=== PATIENT | male | born 1995 | race Caucasian/White ===

== ENCOUNTER 2017-09-20 18:13 | Emergency (ER) | payer OTHER ==
[~2017-09-20] VITALS: Ht 167.6 cm; Wt 78.0 kg
[2017-09-20 18:17] VITALS: TEMP 37; Ht 167.6 cm; Wt 78.0 kg
--- NOTE | 2017-09-20 20:03 | DIAGNOSTIC IMAGING REPORT ---
CT SCAN OF THE BRAIN WITHOUT IV CONTRAST CLINICAL HISTORY: Fall. Intoxication. COMPARISON STUDY: No priors. TECHNIQUE: Unenhanced axial CT scan of the brain is performed from the vertex to the skull base. A dose lowering technique was utilized adhering to the principles of ALARA. CT DOSE: 3399.59 mGy.cm FINDINGS: Brain parenchyma: The brain parenchyma is normal in appearance. There is no hemorrhage, mass effect, or evidence of acute territorial ischemia by CT criteria. Jefferson-white matter is preserved. No extra-axial fluid collection is seen. Ventricles, sulci, cisterns: Normal in configuration. Intracranial vasculature: The visualized intracranial vasculature at the skull base is normal in appearance. Calvarium: There is no depressed calvarial fracture. Sinuses and mastoids: The visualized paranasal sinuses are clear. The mastoid air cells are well pneumatized. Orbits: The bony orbits are grossly intact. IMPRESSION: No acute intracranial abnormality. Electronically signed by: Rosendo Ignacio M.D. 09/20/2017 8:02 PM Dictated Date/Time: 09/20/2017 7:59 PM
--- NOTE | 2017-09-20 20:11 | DIAGNOSTIC IMAGING REPORT ---
CT SCAN OF THE FACIAL BONES WITHOUT IV CONTRAST CLINICAL HISTORY: Fall. Intoxication. Right facial pain. COMPARISON STUDY: CT of the brain performed concurrently on 09/20/2017. TECHNIQUE: High-resolution CT scan of the facial bones is performed. Images are reviewed in the axial, sagittal, and coronal planes. IV contrast was not administered for this examination. A dose lowering technique was utilized adhering to the principles of ALARA. CT DOSE: Reported separately under the concurrently performed CT scan of the brain. FINDINGS: The skeletal structures are well mineralized. There is no evidence of facial bone fracture. The bony orbits are intact and the orbital contents are within normal limits. The zygomatic arches, nasal bones, and pterygoid plates are preserved. The maxilla and mandible are intact. There are no layering blood products within the paranasal sinuses. The sinuses and mastoids are clear. The visualized calvarium and upper cervical spine are maintained. Partially imaged brain parenchyma is within normal limits. There is right premalar and periorbital soft tissue contusion. IMPRESSION: 1. There is no evidence of facial bone fracture. 2. Right periorbital and premalar soft tissue contusion. Electronically signed by: Rosendo Ignacio M.D. 09/20/2017 8:10 PM Dictated Date/Time: 09/20/2017 7:58 PM
--- NOTE | 2017-09-21 03:35 | EMERGENCY ROOM VISIT NOTE ---
History First contact with patient: 18:20 Chief Complaint: LACERATION/CUT (SUT/DERMABOND) Stated Complaint: LACERATION TO R EYE, BEEN DRINKING Nursing Triage Summary: Patient was at the [facility] and was found on the ground with a laceration to right eye. Patient states he was drinking "a lot of alcohol" Denies medical problems or taking any medications. History of Present Illness The patient is a 22 year old male who presents to the Emergency Room via ambulance with complaints of injuries after he fell while drinking alcohol today. The patient reports significant alcohol consumption today while tailgating. The patient denies any illicit drug use. He also denies any other injuries today or from his fall, denying any headache, neck pain or back pain. He also denies any paresthesias or numbness of the extremities. Review of Systems Initial review of system was limited secondary to alcohol intoxication, but full 10 system review was performed later in the patient's evaluation.10 system review was performed and was negative except for pertinent positives and negatives as indicated in history of present illness was unremarkable except as indicated in the previous section. Past Medical/Surgical History Medical Problems: (1) No significant past medical history Surgical Problems: (1) No history of previous surgery Family History Unremarkable Social History Smoking Status: Never Smoker Alcohol Use: occasionally Marital Status: single Housing Status: lives with friends Occupation Status: [employer] student Current/Historical Medications Unable to Obtain Active Prescriptions or Reported Meds Physical Exam Vital Signs Date Time Temp Pulse Resp B/P (MAP) Pulse Ox O2 Delivery O2 Flow Rate FiO2 09/21/17 01:47 98 16 91/62 97 Room Air 09/21/17 01:40 74 09/20/17 23:51 85 16 127/85 100 Room Air 09/20/17 22:07 95 16 122/63 100 Room Air 09/20/17 21:54 66 16 101/66 97 Room Air 09/20/17 21:26 63 09/20/17 20:04 83 15 118/80 100 Room Air 09/20/17 19:25 72 16 96/60 95 Room Air 09/20/17 19:18 Room Air 09/20/17 18:17 37.0 100 16 140/73 97 Room Air Physical Exam CONSTITUTIONAL: Healthy and well nourished. Strong smell of EtOH is present. HEENT: Examination shows several small superficial abrasions to the right lateral eye region. No tenderness to palpation of the remaining facial bones and. No epistaxis, hemotympanum, raccoon's eyes or Laguna sign. Pupils equal, round and reactive. NECK: Full active range of motion without discomfort. RESPIRATORY: Clear to auscultation bilaterally with no wheezing, crackles, rhonchi or stridor. CARDIOVASCULAR: Regular rate and rhythm with no murmurs, rubs or gallops. GASTROINTESTINAL: Bowel sounds present in all quadrants. Soft and nontender to palpation. MUSCULOSKELETAL: Full range of motion of all joints without discomfort. INTEGUMENTARY: No rash or other significant dermatologic conditions noted. HEMATOLOGIC: No ecchymosis or petechiae noted. NEUROLOGIC: No focal neurologic deficits noted. Medical Decision & Procedures ER Provider Diagnostic Interpretation: Noncontrast CT of the head and facial bones does not show any acute fractures or intracranial bleed. Radiologist reports were also reviewed. Laboratory Results Test 09/20/17 19:07 Ethyl Alcohol mg/dL 381.0 mg/dl (0-3) ED Course Patient history and physical exam were performed. Nurse's notes were reviewed. The patient was initially communicative, but review of systems could not be performed. The patient denied any medical or surgical history. IV access was established, and labs were drawn. The patient was placed on desk monitor and in prone position to prevent aspiration. Noncontrast CT of the head and facial bones were normal. The patient had no further adverse events while in the emergency department and was sleeping comfortably until spontaneously awakening. The patient was instructed to remain well-hydrated and avoid any further alcohol consumption over the next 24 hours. Follow-up with PCP or [facility] as needed for any persistent symptoms. Return to the emergency department for any worsening symptoms. The patient was provided contact information for the [facility]. Medical Decision Impression Primary Impression: Alcohol overdose Additional Impression: Facial abrasion Departure Information Dispostion Home / Self-Care Prescriptions Unable to Obtain Active Prescriptions or Reported Meds Forms HOME CARE DOCUMENTATION FORM, IMPORTANT VISIT INFORMATION Patient Instructions [employer] Additional Instructions Your blood alcohol was 0.381. You are underage drinking. Rest and remain well-hydrated over the next 24 hours. Follow-up with [facility] as needed for further management. Complete the [facility] as instructed in the provided handout. Problem Qualifiers Primary Impression: Alcohol overdose Encounter type: initial encounter Injury intent: undetermined intent Qualified Codes: T51.94XA - Toxic effect of unspecified alcohol, undetermined, initial encounter Additional Impression: Facial abrasion Encounter type: initial encounter Qualified Codes: S00.81XA - Abrasion of other part of head, initial encounter
[2017-09-21 07:00] VITALS: O2SAT 98
[2017-09-21 07:22] VITALS: PULSE 89
[2017-09-21 07:45] VITALS: BP 140/79
== END 2017-09-21 07:58 | disposition home or self-care (01) ==
LOC: EDBD 18:13 → C.EDB 18:15
DX: T51.91XA Toxic effect of unspecified alcohol, accidental (unintentional), initial encounter (principal); S00.81XA Abrasion of other part of head, initial encounter; W19.XXXA Unspecified fall, initial encounter